=== PATIENT | male | born 1965 | race African-American/Black ===

== ENCOUNTER 2018-05-15 12:05 | Inpatient (IN) | payer SELFPAY ==
[2018-05-15 12:36] LABS: #Basophils 0.1 thou/uL (0.0-0.2); #Lymphocytes 2.7 thou/uL (1.20-3.40); #Monocytes 1.4 thou/uL (0.11-0.59); #Neutrophils 7.8 thou/uL (1.40-6.50); %Basophils 0.7 % (0.0-1.0); %Eosinophils 0.2 % (0.0-10.0); %Lymphocytes 22.8 % (21.0-51.0); %Monocytes 11.8 % (0.0-10.0); %Neutrophils 64.5 % (42.0-75.0); Hemoglobin 18.4 g/dL (14.0-18.0); Mean Corpuscular HGB CONC 32.9 g/dL (32.0-36.0); Mean Platelet Volume 6.9 fL (7.4-10.4); Platelet Count 291 thou/uL (130-400); RBC Distribution Width 11.7 % (11.5-14.5); Red Blood Cell (RBC) Count 5.41 mill/uL (4.70-6.10)
[2018-05-15 13:02] LABS: ALT (SGPT) 28 U/L (8-55); AST (SGOT) 29 U/L (5-34); Albumin 3.6 g/dL (3.5-5.0); Alkaline Phosphatase 109 U/L (40-150); Anion Gap 11 mmol/L (10-20); BUN (Urea Nitrogen) 7 mg/dL (8.4-25.7); Bilirubin, Total 0.7 mg/dL (0.2-1.2); Calc. Creatinine Clearance 0 mL/min (70-130); Calcium 9.8 mg/dL (7.8-10.44); Carbon Dioxide 31 mmol/L (22-29); Chloride 97 mmol/L (98-107); Estimated GFR-MDRD Greater than 90; Globulin 5.5 g/dL (2.4-3.5); Glucose 182 mg/dL (70-105); Potassium 3.6 mmol/L (3.5-5.1); Protein, Total 9.1 g/dL (6.0-8.3); Sodium 135 mmol/L (136-145)
[2018-05-15] MEDS ORDERED: ISOVUE-370 76%-LOCM 1 ML ONE (13:18)
[2018-05-15] MEDS ORDERED: Morphine 2 MG/ML SYRINGE ONE ×2 (14:11→18:42)
--- NOTE | 2018-05-15 15:23 | CT ---
CT OF ABDOMEN AND PELVIS PERFORMED WITH INTRAVENOUS CONTRAST ENHANCEMENT: History: Abdominal pain, more in the groin region. FINDINGS: The lung bases show some linear change which has the appearance more suggestive of scar. Small bleb i s seen in the right lower lobe. The liver, spleen, pancreas, and gallbladder regions appear unremarkable. Right and left adrenal glands and right and left kidneys are normal in size. There is no significant periaortic or mesenteric lymphadenopathy. CT OF PELVIS PERFORMED WITH INTRAVENOUS CONTRAST ENHANCEMENT: There is a lack of intraabdominal fat. However, an air filled normal caliber appendix is seen. No carter e fluid is demonstrated. There is some mildly enlarged external iliac nodes. This is just at the leve l of the anterior margin of the acetabulum with larger nodes of right external iliac node that measur es 1.7 cm in short axis dimension. The left external iliac node is only 8 mm in short axis dimension. There is also some moderate bilateral inguinal adenopathy, a larger node on the right side measures 1.5 cm. Bilateral hydroceles are incidentally noted. Prostate calcifications are present. Review of osseous structures show arthritic change of the spine and hips. No signs of any inguinal hernia demonstrated. IMPRESSION: 1. Bilateral hydroceles. 2. Mildly prominent bilateral inguinal nodes and external iliac chain nodes as discussed above. This is nonspecific, possibly some type of reactive node. There is no other significant adenopathy seen in the abdomen or pelvis. 3. No evidence of hernia. POS: [facility]
--- NOTE | 2018-05-15 16:10 | ULT ---
TESTICULAR ULTRASOUND: Date: 05/15/18 HISTORY: Right-sided testicular pain. COMPARISON: CT earlier today. FINDINGS: Real-time imaging of the scrotum was performed. The testicles are displaced to the left by a large co mplex collection which does not appear to represent a hydrocele but is lateral to the testicles. This has an appearance suggestive of an abscess, probably intrascrotal, but could be within the scrotal w all. It measures approximately 4.0 x 8.0 cm in size. There is no internal vascularity associated with this area. The right and left testes are within normal limits of size. There are small bilateral hydroceles. Epi didymal regions appear unremarkable. Right epididymis is somewhat difficult to visualize. DOPPLER EVALUATION WITH SPECTRAL ANALYSIS: Normal flow is show to the testes. IMPRESSION: Large right-sided complex fluid collection which appears to be a large right scrotal abscess. This was discussed with Dr. Reynolds. CODE CR. POS: [facility]
[2018-05-15] MEDS ORDERED: Piperacillin/Tazobactam 4.5 GM VIAL ONE (16:34)
[2018-05-15 16:52] LABS: Bilirubin Small (Negative); Blood, Urine Negative (Negative); Clarity CLEAR (Clear); Glucose, Urine (Dipstick) Negative (Negative); Leukocyte Negative (Negative); Nitrite Negative (Negative); Protein, Urine (Dipstick) 30 mg/dL (Neg-Trace)
[2018-05-15 16:54] LABS: Bacteria/HPF None Seen HPF (None Seen); Hyaline Casts/LPF 4-6 HYALINE CAST LPF (0-3 Hyaline); Pathc Cast-AUWi Flag 0.15 (0-2.49); RBC/HPF 0-3 HPF (0-3); Squamous Epithelial 0-3 HPF (0-3); WBC/HPF 0-3 HPF (0-3)
[2018-05-15 16:56] LABS: Specific Gravity, Urine Greater than 1.060 (1.002-1.036)
[2018-05-15] MEDS ORDERED: Lidocaine 1% w/Epinephrine 1:100K 20 ML VIAL ONE (17:07)
[2018-05-15] MEDS ORDERED: HYDROcodone/Acetaminophen 5/325 mg Tablet PO PRN (17:59)
[2018-05-15] MEDS ORDERED: Morphine 2 MG/ML SYRINGE IVP PRN (17:59)
[2018-05-15] MEDS ORDERED: Mag-Al 1200 mg/1200 mg/30 ML UDCUP PO PRN (17:59)
[2018-05-15] MEDS ORDERED: hydrALAZINE 20 MG/ML VIAL SLOW IVP PRN (17:59)
[2018-05-15] MEDS ORDERED: diphenhydrAMINE 25 MG CAP PO PRN (17:59)
[2018-05-15] MEDS ORDERED: Bisacodyl 10 MG SUPP PR PRN (17:59)
[2018-05-15] MEDS ORDERED: Morphine 4 MG/ML VIAL SLOW IVP PRN (17:59)
[2018-05-15] MEDS ORDERED: Ondansetron PF 4 MG/2 ML Vial IVP PRN (17:59)
[2018-05-15 18:32] LABS: Hemoglobin A1c 5.1 % (4.0-6.0)
[2018-05-15 20:44] VITALS: BMI 24.6
[2018-05-15] MEDS: Docusate 100 MG CAP PO SCH (20:45)
[2018-05-15 22:18] LABS: Syphilis Antibody Index 1.16 S/CO (<1.00 Non-Reactive)
[2018-05-15 22:50] LABS: HIV (1/2) Antibody/Antigen Non-Reactive (NonReactive); HIV 1/2 INDEX 0.11 S/CO (<1.00); Hep C IgG Ab Non-Reactive (NonReactive); Hep C Index 0.07 S/CO (0-0.79)
[2018-05-15] MEDS: Piperacillin/Tazobactam 3.375 GM in Sodium Chloride 0.9% 100 ML IVPB SCH (23:53)
[2018-05-16 01:01] LABS: Syphilis Antibody INDETERMINATE (Nonreactive); Syphilis Titer Non-Reactive (Negative)
[2018-05-16] MEDS: Vancomycin HCl 750 MG in Sodium Chloride 0.9% 250 ML 250 ML IVPB SCH ×3 (01:12→18:33)
--- NOTE | 2018-05-16 03:52 | HP ---
ADMITTING DIAGNOSIS: Right scrotal abscess. CHIEF COMPLAINT: "I have this pain real bad in my scrotum." HISTORY OF PRESENT ILLNESS: Mr. Peguero is a 53-year-old black male, who presented to the emergency room today with scrotal pain on the right side. He states that he had a knot in his right inguinal area approximately 2 days before Thanksgiving on the , last week. He was not having much pain at that time, but did notice some swelling in the groin region. After Thanksgiving, the area has started to become painful, but he did not have any fevers. There was no significant redness. The patient became constipated subsequently and ended up having a forceful bowel movement, at which point he felt the "mass" drop into his scrotum and his scrotum began to swell. At that point, he experienced a lot of pain in his groin region with extreme sensitivity especially when walking. The pain was made better by lying still and not moving much. The pain is approximately an 8/10 with activity. He describes this as a burning, sharp type pain in nature. When the pain did not subside and they continued, he thought he might have a hernia and he came into the emergency room, where he underwent a CT scan followed by a scrotal ultrasound. The CT demonstrated a hydrocele with some complex features and the scrotal ultrasound demonstrated a thick fluid collection more consistent with abscess. I was consulted for further assistance. The patient states that he has no history of voiding difficulties or urinary tract infection. He denies any previous urologic surgeries or trauma. He has never had hernia repairs before. He states he has not had any hematuria or kidney stones. He has no history of urinary tract infections. Of note, the patient has no insurance and does not see a doctor regularly, therefore his health problems are not well known and probably have never been diagnosed. His blood sugar was 186 upon arrival into the emergency room. PAST MEDICAL HISTORY: Unknown. No known medical problems at the current time. PAST SURGICAL HISTORY: Some type of hernia repair, possibly umbilical hernia repair. SOCIAL HISTORY: The patient denies smoking. Drinks socially only and denies any drug use. FAMILY HISTORY: Noncontributory. CURRENT HOME MEDICATIONS: None. ALLERGIES: NO KNOWN DRUG ALLERGIES. REVIEW OF SYSTEMS: A 12-point review of systems is reviewed and otherwise unremarkable. review of systems is in the HPI and negative other than the scrotal pain. Denies any fever or chills, nausea, vomiting, chest pain, or shortness of breath. Remainder of 12-point review of systems is reviewed and otherwise negative. PHYSICAL EXAMINATION: GENERAL: No apparent distress. Communicative and alert, well-nourished, well-developed, and appears his stated age. HEENT: Normocephalic, atraumatic. Sclerae nonicteric. Pupils symmetric and round. Moist mucous membranes. Missing some teeth with slightly below average dentition. Trachea midline. CARDIOVASCULAR: Regular rate and rhythm. Normal S1 and S2. Symmetric pulses. CHEST: Breath sounds bilaterally. No wheezes. No increased work of breathing. Symmetric expansion of the lungs. ABDOMEN: Soft, nontender, and nondistended. Positive bowel sounds. No suprapubic tenderness. No CVA tenderness. No organomegaly. No rebound, guarding or peritoneal signs. GENITOURINARY: The patient is uncircumcised. There are no lesions upon retraction of the foreskin. Meatus is normal. The left scrotum appears normal with normal testicle. The right scrotum is enlarged with erythema, shininess of the scrotal wall with significant tenderness on palpation. There are palpable lymph nodes along the right inguinal chain with significant tenderness at the external ring. There are no obvious hernias present. RECTAL: Exam is deferred at this time. EXTREMITIES: No clubbing, cyanosis, or edema. MUSCULOSKELETAL: No joint or foot deformities or joint erythema noted. Full range of motion of all extremities. NEUROLOGIC: Cranial nerves 2 through 12 grossly intact. No focal or sensory motor deficits identified. SKIN: Warm, dry. Good turgor. No rashes or lesions. PSYCHIATRIC: Alert and oriented x3. Appropriate mood and affect. LABORATORY DATA: On laboratory evaluation, the full set of labs in the [facility] system, which I have reviewed. Of note, the patient's white count is 12 with the creatinine of 1, sodium of 135, and a blood sugar of 182. CT from May 15 demonstrates bilateral hydroceles with mildly prominent bilateral inguinal lymph nodes and external iliac chain nodes without any evidence of hernia. Scrotal ultrasound done today, demonstrates a large right-sided complex fluid collection, which appears to be a large right scrotal abscess. PROCEDURE: I discussed with the patient, the very high likelihood of his scrotal abscess. I discussed incision and drainage with him along with risks and benefits, he has agreed to proceed forward, consent was obtained. His scrotum was prepped and draped in the usual sterile fashion. Analgesia was obtained with 0.25% Marcaine with epinephrine, 10 mL was used along the inferior aspect of the anterior scrotum. Once numb, an incision was made with an 11 blade, approximately 1 cm, which immediately released a brownish purulent and sanguineous type fluid with the foul odor. A swab was used to culture this fluid and send off for Gram-stain and culture. Confirming that this was indeed an abscess, the incision was opened to approximately 4 cm to allow for proper drainage. All of the fluid was squeezed out and the patient reported immediate relief in the scrotum. The scrotal cavity was then washed out thoroughly with hydrogen peroxide and then irrigated clean with normal saline. Iodoform packing was then used to pack up the scrotum. A gauze was applied over the incision line and then mesh panties applied. The patient tolerated the procedure well. Estimated blood loss is approximately 30 mL to 40 mL with 0.25 inch Sana packing. No specimens other than the culture taken. ASSESSMENT AND PLAN: A 53-year-old black male with the right scrotal abscess, status post incision and drainage with likely diabetes, although this has not been confirmed. I have ordered a hemoglobin A1c and I have recommended the hospitalist consult to evaluate to see if the patient has any other known medical problems at the current time. I will go ahead and admit him for IV antibiotics as he does have a lymphadenopathy and I would like to treat him systemically, especially if he is diabetic. Once we get the cultures back, we can send him out on oral antibiotics for approximately 10 days. He will need to have his iodoform gauze change daily. We will see if there is any ability for home health to come; although he has no insurance. If he cannot have a home health, he will need to learn and do this by himself. I will continue to follow up with him on an outpatient basis once he is discharged to ensure proper healing and I have strongly recommended that he considered seeing [facility] or any other [facility] for his health care needs and any new diagnosis that he obtains while in the hospital. Job ID: [id number]
[2018-05-16] MEDS: Piperacillin/Tazobactam 3.375 GM in Sodium Chloride 0.9% 100 ML IVPB SCH ×3 (05:17→17:20)
[2018-05-16 06:17] LABS: Anion Gap 9 mmol/L (10-20); BUN (Urea Nitrogen) 7 mg/dL (8.4-25.7); Calc. Creatinine Clearance 106 mL/min (70-130); Calcium 8.9 mg/dL (7.8-10.44); Carbon Dioxide 29 mmol/L (22-29); Chloride 104 mmol/L (98-107); Estimated GFR-MDRD Greater than 90; Glucose 97 mg/dL (70-105); Potassium 3.8 mmol/L (3.5-5.1); Sodium 138 mmol/L (136-145)
--- NOTE | 2018-05-16 06:36 | PDOC.EVN ---
Event Note - Event Note Event Note: Consultation note dictation pending. Briefly, 53 yo M with h/o HTN admitted for scrotal abscess s/p I&D and IV antibiotics. BCx, UCx and fluid studies pending. Monitoring BP and will start medications as indicated. a1c WNL. Due to h/o incarceration and tattoos, HIV, RPR and Hep C ordered. Please see consultation note for full H&P.
[2018-05-16 06:51] LABS: Band 3 % (5-11); Hemoglobin 16.7 g/dL (14.0-18.0); Lymphocytes 40 % (21-51); MDiff Complete? YES; Macrocytosis SLIGHT = 6-15 cells (100X) (0-5/hpf); Mean Corpuscular HGB CONC 33.2 g/dL (32.0-36.0); Mean Corpuscular Hemoglobin 34.5 pg (27.0-31.0); Mean Platelet Volume 7.4 fL (7.4-10.4); Monocytes 1 % (0-10); Neutrophil 56 % (42-75); PLT Morphology Comment Appears Adequate; Platelet Count 261 thou/uL (130-400); RBC Distribution Width 11.6 % (11.5-14.5); Red Blood Cell (RBC) Count 4.85 mill/uL (4.70-6.10); White Blood Cell (WBC) Count 8.5 thou/uL (4.8-10.8)
--- NOTE | 2018-05-16 08:44 | CON ---
REASON FOR CONSULTATION: Comorbidity management. HISTORY OF PRESENT ILLNESS: Mr. Peguero is a 53-year-old gentleman, who presented to the ER today after approximately 1 week of worsening fullness in his right groin. He reports that approximately 1 to 2 days prior to Thanksgiving he noticed that he was becoming progressively more constipated and was having difficulty having bowel movements. He notes that approximately 2 days after Thanksgiving he was trying to have a bowel movement and felt that something had progressively lowered into his right scrotum. He thought it was a hernia from straining and tried to rest at home for a few days, but the pain became progressively more uncomfortable and today family encouraged him to proceed to the ER for evaluation. While there, he was found to be hypertensive, although in significant pain, and a CT was performed, which showed a scrotal mass suspicious for an infected hydrocele versus scrotal abscess as well as prominent inguinal nodes. There was no evidence of hernia at that time. Dr. Burnett was consulted in ER and performed a bedside I and D revealing significant purulent drainage, which was sent for further evaluation. At this time, the patient reports he is feeling well, and his pain is much improved. He does endorse a remote history of hypertension, which was diagnosed in the s and that he was on medication for approximately 1 year. He was then told that he could come off the medication. He denies any other significant medical history. He reports that he has otherwise been feeling well, and denies any other symptoms. PAST MEDICAL HISTORY: Hypertension. PAST SURGICAL HISTORY: None. FAMILY HISTORY: Diabetes in his mother and Alzheimer's disease in his grandmother. SOCIAL HISTORY: Denies tobacco use. Endorses alcohol, he is drinking 1 to 2 beers a day. Denies any history of DTs or withdrawal, and has gone a few days without drinking within the last month. Endorses occasional marijuana use. Denies any other illicit drug use or IV drug use. History of incarceration. MEDICATIONS: None. ALLERGIES: NO KNOWN DRUG ALLERGIES. REVIEW OF SYSTEMS: GENERAL: Denies fever or chills. HEAD: Denies headache or head trauma. EYES: Denies vision changes or eye pain. ENT: Denies ear pain or rhinorrhea. CV: Denies chest pain or palpitations. RESPIRATORY: Denies cough or sputum production. GASTROINTESTINAL: Denies nausea or vomiting. Endorses constipation. GENITOURINARY: Denies dysuria or hematuria. Endorses scrotal swelling. ENDOCRINE: Denies polyuria or polydipsia. MUSCULOSKELETAL: Denies joint pain or joint swelling. NEUROLOGIC: Denies focal weakness or seizures. PHYSICAL EXAMINATION: VITAL SIGNS: Blood pressure 158/100, respirations 18, pulse 55, temperature 98.2, and SpO2 98% on room air. GENERAL: Alert and oriented x3. HEENT: Atraumatic and normocephalic, slightly dry mucous membranes, muddy sclerae, trachea midline. CARDIOVASCULAR: Regular rate and rhythm. No murmur noted. RESPIRATORY: Clear to auscultation bilaterally. ABDOMEN: Soft, nontender, and nondistended with normoactive bowel sounds. GENITOURINARY: Right scrotum erythematous and tender to palpation with incision draining serosanguinous fluid. BACK: No CVA tenderness. EXTREMITIES: No edema. Pulses 2+ SKIN: Tattoos on chest and upper extremities. LABORATORY DATA: Labs were reviewed, which revealed mild leukocytosis and elevated hemoglobin. CT of the abdomen and pelvis showed bilateral hydroceles, no evidence of inguinal hernia, and mildly prominent bilateral inguinal nodes, and external iliac chain nodes. Testicular ultrasound showed a large right-sided complex fluid collection, appearing to be a large right scrotal abscess. ASSESSMENT AND PLAN: A 53-year-old male with past medical history of hypertension, here for a right scrotal abscess with unknown comorbidities. 1. Scrotal abscess: Management per Dr. Burnett. Blood and urine cultures are pending as well as additional laboratory studies of fluid drained. 2. Hypertension: We will continue to monitor blood pressure and discuss with the patient possibility of starting p.o. medications now that pain is acutely controlled. 3. Hyperglycemia. Nonfasting glucose of 180. We will check A1c and monitor fasting glucose and discuss initiation of medication as indicated. 4. Tattoos: The patient reports tattoos were performed in skilled nursing. He does not know if he has been tested for hepatitis or human immunodeficiency virus. We will plan to add this with unusual infection and possible immunocompromised state. 5. Code status: Full. 6. Prophylaxis: Lovenox 40 mg subcutaneous qDay Jennifer Katz MD, PGY-3 Assessment and plan discussed with Dr. Sage. Job ID: [id number] [facility]
[2018-05-16] MEDS: HYDROcodone/Acetaminophen 5/325 mg Tablet PO PRN ×2 (09:15→22:15)
[2018-05-16] MEDS: Enoxaparin Sodium 40 MG/0.4 ML SYRINGE SC SCH (09:15)
[2018-05-16] MEDS: Docusate 100 MG CAP PO SCH ×2 (09:20→20:40)
--- NOTE | 2018-05-16 12:00 | PDOC.FM ---
- Subjective Subjective: Patient doing well this AM. No significant overnight events. He states that his pain is much improved after procedure. His pain went from 10/10 to 2/10. Patient states he does have a history of HTN back in the 's. He was on medications for a few months and then taken off as his BP was very well controlled. Patient denies abdominal pain, fever, chills, chest pain or shortness of breath today. - Objective MAR Reviewed: Yes Vital Signs & Weight: Vital Signs (12 hours) Temp Pulse Resp BP Pulse Ox 05/16/18 08:00 98.5 F 61 18 116/113 H 97 05/16/18 03:57 98.3 F 61 18 140/87 97 Weight Weight 75.75 kg Result Diagrams: 05/16/18 05:14 05/16/18 05:14 EKG Reviewed by me: No Radiology Reviewed by me: Yes <Kenisha Orr - Last Filed: 05/16/18 12:10> - Objective Vital Signs & Weight: Vital Signs (12 hours) Temp Pulse Resp BP Pulse Ox 05/16/18 08:00 98.5 F 61 18 116/113 H 97 05/16/18 03:57 98.3 F 61 18 140/87 97 Weight Weight 75.75 kg Result Diagrams: 05/16/18 05:14 05/16/18 05:14 <Marco A Diaz - Last Filed: 05/16/18 15:57> Phys Exam - Physical Examination Constitutional: NAD HEENT: moist MMs Neck: supple Respiratory: no wheezing, clear to auscultation bilateral Cardiovascular: RRR, no significant murmur Gastrointestinal: soft, non-tender, no distention, positive bowel sounds Musculoskeletal: no edema, pulses present Neurological: non-focal Psychiatric: A&O x 3 Skin: cap refill <2 seconds <Kenisha Orr - Last Filed: 05/16/18 12:10> Dx/Plan (1) HTN (hypertension) Code(s): I10 - ESSENTIAL (PRIMARY) HYPERTENSION Status: Acute (2) Tattoos Code(s): L81.8 - OTHER SPECIFIED DISORDERS OF PIGMENTATION Status: Acute (3) History of incarceration Code(s): Z91.89 - OTH PERSONAL RISK FACTORS, NOT ELSEWHERE CLASSIFIED Status: Chronic (4) Scrotal abscess Code(s): N49.2 - INFLAMMATORY DISORDERS OF SCROTUM Status: Acute - Plan Plan: 53 yo M with h/o HTN admitted for scrotal abscess s/p I&D and IV antibiotics. Our team was consulted for medical management. Large complex scrotal abscess - S/p I&D - Continue IV abx per urology - BCx, UCx and fluid studies pending - Improved after I&D HTN, suspected - Distant history of HTN on medications for a few months in the past - BP has been intermittently elevated during visit. May be secondary to pain. Will hold off on starting medication at this time, but will continue to monitor. Explained that if BP remained elevated, we would consider starting small dose of medication. - Information for TAMP will be provided to clinic so that he can follow up and have BP monitored Tattoos - HIV and Hep panel negative - RPR intermediate, FTA-Abs pending Dispo: Will continue to follow patient for medical management. Appreciate consultation. <Kenisha Orr - Last Filed: 05/16/18 12:10> Attending Addendum - Attending Addendum Date/Time: 05/16/18 1132 I personally evaluated the patient and discussed the management with Dr. Orr. I agree with the History, Examination, Assessment and Plan documented above with any addition or exceptions noted below. <Marco A Diaz - Last Filed: 05/16/18 15:57>
[2018-05-16 16:30] LABS: Vancomycin, Trough 10.5 ug/mL
[2018-05-16] MEDS: Vancomycin HCl 1 GM in Premix Bag 1 BAG IVPB SCH (18:02)
[2018-05-17] MEDS: Piperacillin/Tazobactam 3.375 GM in Sodium Chloride 0.9% 100 ML IVPB SCH ×3 (00:20→11:06)
[2018-05-17] MEDS: Vancomycin HCl 1 GM in Premix Bag 1 BAG IVPB SCH ×2 (01:21→08:29)
--- NOTE | 2018-05-17 06:50 | PDOC.FM ---
- Subjective Subjective: Resting comfortably this morning. States that pain is well controlled. No new symptoms over night. No new complaints - Objective MAR Reviewed: Yes Vital Signs & Weight: Vital Signs (12 hours) Temp Pulse Resp BP BP BP Pulse Ox 05/17/18 04:39 98.5 F 64 16 134/77 96 05/17/18 00:00 98.3 F 56 L 16 157/95 H 157/95 H 95 05/16/18 22:19 156/87 H 05/16/18 21:08 59 L 187/119 H 05/16/18 19:00 98.9 F 59 L 20 172/103 H 97 Weight Weight 75.75 kg I&O: 05/15/18 05/16/18 05/17/18 06:59 06:59 06:59 Intake Total 2380 Balance 2380 Result Diagrams: 05/16/18 05:14 05/16/18 05:14 <Joel Heller - Last Filed: 05/17/18 06:48> - Objective Vital Signs & Weight: Vital Signs (12 hours) Temp Pulse Resp BP Pulse Ox 05/17/18 12:08 98.8 F 70 16 144/98 H 97 05/17/18 08:25 95 05/17/18 08:17 98.4 F 57 L 16 149/88 H 95 05/17/18 04:39 98.5 F 64 16 134/77 96 Weight Weight 75.75 kg I&O: 05/16/18 05/17/18 05/18/18 06:59 06:59 06:59 Intake Total 2380 Balance 2380 Result Diagrams: 05/16/18 05:14 05/16/18 05:14 <Amisha Best - Last Filed: 05/17/18 13:53> Phys Exam - Physical Examination Constitutional: NAD HEENT: moist MMs Neck: no JVD Respiratory: clear to auscultation bilateral Cardiovascular: RRR Gastrointestinal: soft, non-tender, no distention Neurological: moves all 4 limbs Psychiatric: A&O x 3 Skin: no rash <Joel Heller - Last Filed: 05/17/18 06:48> Dx/Plan (1) HTN (hypertension) Code(s): I10 - ESSENTIAL (PRIMARY) HYPERTENSION Status: Chronic (2) Scrotal abscess Code(s): N49.2 - INFLAMMATORY DISORDERS OF SCROTUM Status: Acute (3) History of incarceration Code(s): Z91.89 - OTH PERSONAL RISK FACTORS, NOT ELSEWHERE CLASSIFIED Status: Chronic - Plan Plan: 1. Large complex scrotal abscess - S/p I&D - Continue IV abx per urology, would move to po when cultures result - BCx, UCx and fluid studies pending, prelim negative - Improved after I&D 2. HTN, suspected - Will start on HCTZ today dt continued elevated BP - Follow up with [facility] outpatient Hx of incarceration - initial syphilis IgG screen was indeterminate, T Pallidum FTA pending. RPR negative Dispo: Will continue to follow patient for medical management. Appreciate consultation. <Joel Heller - Last Filed: 05/17/18 06:48> Attending Addendum - Attending Addendum Date/Time: 05/17/18 1152 I personally evaluated the patient and discussed the management with Dr. Heller. I agree with the History, Examination, Assessment and Plan documented above with any addition or exceptions noted below. The patient has been cleared for discharge by urology. <Amisha Best - Last Filed: 05/17/18 13:53>
[2018-05-17] MEDS: Docusate 100 MG CAP PO SCH (08:29)
[2018-05-17] MEDS: Enoxaparin Sodium 40 MG/0.4 ML SYRINGE SC SCH (08:29)
[2018-05-17] MEDS ORDERED: Hydrochlorothiazide 25 MG TAB PO SCH (09:00)
[2018-05-17 12:08] VITALS: BP 144/98; TEMP 98.8
--- NOTE | 2018-05-17 19:01 | EKG ---
Test Reason : PREOP/ER Blood Pressure : / mmHG Vent. Rate : 057 BPM Atrial Rate : 057 BPM P-R Int : 176 ms QRS Dur : 086 ms QT Int : 474 ms P-R-T Axes : 047 001 -10 degrees QTc Int : 461 ms Sinus bradycardia Minimal voltage criteria for LVH, may be normal variant Nonspecific T wave abnormality Prolonged QT Abnormal ECG Confirmed by VALERIO BARKER, IFEOMA Keyes ([id number]), communications editor SHELBY ALDANA ([id number]) on 05/17/2018 7:00:51 PM Referred By: Confirmed By:IFEOMA LUO MD
--- NOTE | 2018-05-19 07:49 | DIS ---
DATE OF ADMISSION: 05/15/2018 DATE OF DISCHARGE: 05/17/2018 DISCHARGE SUMMARY AND PHYSICAL EXAMINATION PHYSICAL EXAMINATION: GENERAL: Mr. Peguero on today's exam is doing well. VITAL SIGNS: He is afebrile. Vital signs are stable. ABDOMEN: Soft, nontender, and nondistended. : Right scrotal I and D site visualized, preexisting iodoform gauze was removed and demonstrates evidence of component of purulent discharge. No active fluctuance, worsening erythema is noted. Packing was removed, the wound probed. It does track approximately 4 cm inferiorly, 3 to 4 cm cephalad. No active purulent drainage, no further abscess activity warranting further debridement is noted. A new iodoform packing was replaced, which the patient tolerated the procedure without significant issues. LABORATORY DATA: Pertinent labs today; creatinine 0.84. White count is 8.5, hemoglobin 16, and platelets 261. His serology demonstrates indeterminate syphilis; further antibody testing for syphilis is pending. Hepatitis C and HIV are negative. IMPRESSION AND PLAN: Mr. Peguero is a 53-year-old male, previous inmate, presented with right scrotal abscess, status post incision and drainage by Dr. Burnett. The patient feels comfortable, performing his own dressing changes which we advised once a day, signed up by Dr. Burnett. His wound dressing was changed. I informed the patient that he may shower, change dressing daily. I did inform the nurse to provide extra iodoform gauze and 4x4 for dressing changes at home. His blood culture is negative. Urine culture negative. Wound culture demonstrates no microorganism. Previous gram stain demonstrated gram positive cocci. Therefore, I would discharge with Bactrim DS for 21 days. HOSPITAL COURSE: As above, in which he underwent I and D for presenting abscess. He is tolerating the procedure well and will be discharged home. ACTIVITY: As tolerated. DISCHARGE INSTRUCTIONS: The patient may shower. Dressing changes daily. Sending appointment with Dr. Burnett on 05/20. His narcotics have already been sent to the pharmacy, [facility] as well. I did add Bactrim DS one p.o. b.i.d. for 21 days. DISPOSITION: Home. CONDITION: Stable. Job ID: [id number]
--- NOTE | 2018-05-20 10:48 | PRG ---
DATE OF SERVICE: 05/16/2018 SUBJECTIVE: The patient states he is doing well. His pain is minimal, it only hurts when he moves around a lot or during dressing changes. He did scream quite a bit during his dressing change, but he states that he can do this at home, probably with some assistance. He did not have any fevers and he states he is feeling better overall. OBJECTIVE: VITAL SIGNS: Temperature 98.5, pulse 61, respirations 18, blood pressure 116/113, saturation 97% on room air. GENERAL: No apparent distress, communicating, alert. CARDIOVASCULAR: Regular rate and rhythm. CHEST: No increased work of breathing. ABDOMEN: Soft, nontender, nondistended. Positive bowel sounds. : Scrotum has significantly decreased in size and erythema. There is less swelling. The dressing is somewhat saturated and the packing is still in place. There is a mild amount of purulence around. Overall, there is significant improvement. No evidence of Mickey gangrene. EXTREMITIES: No clubbing, cyanosis, or edema. LABORATORY DATA: On laboratory evaluation, the full set of labs in the [facility], which I have reviewed. Note, the patient's white count has decreased to 8.5 with hemoglobin of 16.7. Creatinine is currently 0.84. Bacterial culture is growing Staphylococcus aureus. Awaiting final sensitivities. ASSESSMENT AND PLAN: A 53-year-old black male with a scrotal wall abscess, status post incision and drainage, currently appearing to do quite well. He is improving significantly. I will continue dressing changes today until his culture is finalized. At that point, he can probably be discharged home with continued wound care with dressing changes once a day with iodoform or half-inch gauze tape. I will have to see him back as followup to make sure that his incision is healing appropriately. We will see if the family medicine physicians have anything to add as far as his medical history as he does not have a general primary care doctor. Dr. Plaza will be seeing the patient over the weekend in my stead and he can probably be discharged once he has his final culture set up and everything is stable and he does know how to take care of his wound. Job ID: [id number]
== END 2018-05-17 12:44 | disposition home or self-care (01) | DRG 718 ==
LOC: ERS 12:05 → SURG A 19:54
PROVIDERS: ADMIT Urology; ATTEND Urology
PROC: 0V950ZZ Drainage of Scrotum, Open Approach (ICD-10-PCS; principal; 2018-05-15)
DX: N49.2 Inflammatory disorders of scrotum (principal); R73.9 Hyperglycemia, unspecified; B95.61 Methicillin susceptible Staphylococcus aureus infection as the cause of diseases classified elsewhere
CPT/HCPCS: 36415; 74177; 76870; 80048; 80053; 80202; 81003; 81015; 83036; 85025; 86593; 86780; 86803; 87040; 87070; 87077; 87086; 87186; 87205; 87389; 93005; 93976; 96365; 96366; 96367; 96375; 96376; J0360; J1650; J2001; J2270; J2543; J3370; J7050

== ENCOUNTER 2018-07-25 15:33 | Inpatient (IN) | payer SELFPAY ==
[~2018-07-25 15:33] MED LIST: ISOVUE-370 76%-LOCM 1 ML ONE
[2018-07-25 16:14] LABS: #Eosinphils 0.1 thou/uL (0.0-0.7); #Lymphocytes 3.9 thou/uL (1.20-3.40); #Monocytes 1.4 thou/uL (0.11-0.59); #Neutrophils 11.2 thou/uL (1.40-6.50); %Basophils 0.2 % (0.0-1.0); %Eosinophils 0.3 % (0.0-10.0); %Lymphocytes 23.4 % (21.0-51.0); %Monocytes 8.5 % (0.0-10.0); %Neutrophils 67.6 % (42.0-75.0); Hemoglobin 18.6 g/dL (14.0-18.0); Mean Corpuscular HGB CONC 31.3 g/dL (32.0-36.0); Mean Corpuscular Hemoglobin 33.4 pg (27.0-31.0); Mean Platelet Volume 8.3 fL (7.4-10.4); Platelet Count 193 thou/uL (130-400); RBC Distribution Width 14.2 % (11.5-14.5); Red Blood Cell (RBC) Count 5.55 mill/uL (4.70-6.10); White Blood Cell (WBC) Count 16.5 thou/uL (4.8-10.8)
[2018-07-25 16:20] LABS: Actual Bicarbonate (HCO3a) 19.4 mEq/L (22-28); Analyzer IN Cardio ER; Base Excess (BEa) -5.7 mEq/L (-2.0 to +3.0); CO2 Tension 37.2 mmHg (35.0-45.0); Calcium, Ionized 1.17 mmol/L (1.12-1.30); Carboxyhemoglobin (COHb) 1.2 gm% (0.0-3.0); Hemoglobin (Hb) 18.2 g/dL (14.0-18.0); O2 Tension (PaO2) 87.6 mmHg (80.0-100.0); Potassium - ABG Lab 3.33 mmol/L (3.70-5.30); pH, Arterial 7.33 (7.35-7.45)
[2018-07-25 16:20] LABS: INR-International Normal Ratio 0.9; PTT 25.6 SEC (22.9-36.1); Prothrombin Time 12.2 SEC (12.0-14.7)
[2018-07-25 16:21] LABS: Puncture Site RRA
[2018-07-25 16:26] LABS: MDiff Complete? YES; Macrocytosis SLIGHT = 6-15 cells (100X) (0-5/hpf); Platelet Morphology Comment Appears Adequate
[2018-07-25 16:52] LABS: Bilirubin Negative (Negative); Blood, Urine Moderate (Negative); Clarity CLEAR (Clear); Glucose, Urine (Dipstick) >=1000 mg/dL (Negative); Leukocyte Negative (Negative); Nitrite Negative (Negative); Protein, Urine (Dipstick) 100 mg/dL (Neg-Trace); Specific Gravity, Urine 1.021 (1.002-1.036); Urobilinogen 0.2 mg/dL (0.2-1.0); pH, Urine 5.5 (5.0-9.0)
[2018-07-25 16:55] LABS: Bacteria/HPF None Seen HPF (None Seen); Hyaline Casts/LPF 0-3 HYALINE CAST LPF (0-3 Hyaline); Pathc Cast-AUWi Flag 0.29 (0-2.49); RBC/HPF 0-3 HPF (0-3); Squamous Epithelial 0-3 HPF (0-3); WBC/HPF 0-3 HPF (0-3)
[2018-07-25] MEDS ORDERED: Fentanyl 100 MCG/2 ML VIAL ONE (17:04)
[2018-07-25] MEDS ORDERED: Midazolam HCl 5 mg/ml Vial ONE (17:08)
[2018-07-25] MEDS ORDERED: Lorazepam 2 MG/ML VIAL ONE (17:09)
--- NOTE | 2018-07-25 17:19 | CT ---
CT ARTERIOGRAM NECK WITH IV CONTRAST AND 3D MIP IMAGING CT ARTERIOGRAM HEAD WITH IV CONTRAST AND 3D MIP IMAGING CT BRAIN WITH IV CONTRAST 07/25/18 HISTORY: Head injury. Intracranial hemorrhage. FINDINGS: Large right cerebral intraparenchymal acute hematoma with larger amount of surrounding vasogenic maryellen a and leftward shift of the septum pellucidum with complete effacement of the right lateral ventricle is similar to the recent noncontrast CT head exam. There is normal branching of the great vessels at the aortic arch with good flow into each carotid an d vertebral system. No significant stenoses at the carotid bifurcations. Severe widespread cerebral edema effaces the basilar cisterns. Good flow is seen into each anterior a nd middle cerebral artery and to the left posterior cerebral artery. The right posterior cerebral art libby is not well visualized. There is no enhancing lesions or aneurysms are apparent. Nasogastric tube and endotracheal catheter partially visualized. Gas is present within the left supra temporal subcutaneous and muscular tissues. Small amount of fluid within the posterior nasopharynx. IMPRESSION: Large right parenchymal hematoma and diffuse cerebral edema are again demonstrated with resulting com pression and possible occlusion of the right posterior cerebral artery due to the herniation. The ant erior, middle, and left posterior cerebral arterial distributions are preserved. Findings were called to Dr. Kendrick in the Emergency Department at 1704 hours. Code CR POS: [facility]
[2018-07-25 17:27] LABS: ALT (SGPT) 11 U/L (8-55); AST (SGOT) 28 U/L (5-34); Alkaline Phosphatase 102 U/L (40-150); Anion Gap 19 mmol/L (10-20); BUN (Urea Nitrogen) 9 mg/dL (8.4-25.7); Bilirubin, Total 1.5 mg/dL (0.2-1.2); CK (CPK) 292 U/L (30-200); Calc. Creatinine Clearance 0 mL/min (70-130); Carbon Dioxide 20 mmol/L (22-29); Chloride 103 mmol/L (98-107); Estimated GFR-MDRD Greater than 90; Globulin 3.8 g/dL (2.4-3.5); Glucose 219 mg/dL (70-105); Potassium 3.5 mmol/L (3.5-5.1); Protein, Total 7.8 g/dL (6.0-8.3); Sodium 138 mmol/L (136-145)
[2018-07-25 17:46] LABS: CKMB 2.4 ng/mL (0-6.6)
[2018-07-25] MEDS ORDERED: Acetaminophen 325 MG TAB PO PRN (18:20)
[2018-07-25] MEDS ORDERED: Bisacodyl 10 MG SUPP PR PRN (18:20)
[2018-07-25] MEDS ORDERED: Norepinephrine 8 MG/0.9% NS 250 ML IVPB PRN (18:20)
[2018-07-25] MEDS ORDERED: Ondansetron PF 4 MG/2 ML Vial IVP PRN (18:20)
[2018-07-25] MEDS ORDERED: Mag-Al 1200 mg/1200 mg/30 ML UDCUP PO PRN (18:20)
[2018-07-25] MEDS ORDERED: Labetalol HCl 100 MG/20 ML VIAL SLOW IVP PRN (18:20)
[2018-07-25] MEDS ORDERED: Milk Of Magnesia 30 ML UDCUP PO PRN (18:20)
[2018-07-25] MEDS ORDERED: fentaNYL Citrate/PF 2,000 MCG in Sodium Chloride 0.9% 60 ML IV SCH (18:56)
[2018-07-25] MEDS ORDERED: Lorazepam 2 MG/ML VIAL SLOW IVP PRN (18:56)
[2018-07-25] MEDS ORDERED: Propofol BOLUS 1,000 MG/100 ML VIAL IV PRN (18:56)
[2018-07-25] MEDS ORDERED: Fentanyl BOLUS 250 ML IVPB PRN (18:56)
[2018-07-25] MEDS ORDERED: Morphine 2 MG/ML SYRINGE SLOW IVP PRN (18:56)
[2018-07-25] MEDS ORDERED: DISCONTINUE PREVIOUS NARCOTIC PAIN MEDICATIONS AND BENZODIAZEPINES FS SCH (18:56)
[2018-07-25] MEDS: niCARdipine HCl 25 MG in Sodium Chloride 0.9% 250 ML 240 ML IVPB PRN ×3 (19:07→23:50)
--- NOTE | 2018-07-25 19:15 | PRG ---
DATE OF SERVICE: 07/25/2018 SUBJECTIVE: I personally examined the patient, reviewed imaging, spoke with the family, and agreed with documentation of Vilma Alex PA-C dated 2018. Briefly, Beka Peguero is a 53-year-old gentleman who came to the ED after acute onset thunderclap headache. This was worst headache of his life. About the time he was brought to the emergency department, he was losing consciousness. He was sedated and intubated and taken to CT examination of the brain, which revealed a parenchymal clot in the right temporal lobe and a massive amount of shift with temporal lobe herniation and compression of the brainstem and posterior brainstem hemorrhage. Blood pressure at the time of first evaluation was well over 200. Since then, he has been placed on a Cardene drip and given propofol. He was taken for CT angiography and he is back from that test now. I saw Mr. Peguero in our trauma bay with the propofol off and he breathes over the ventilator. His GCS is 4T. He has extensor posturing on both sides. The right pupil is 8 mm large and does react. The left pupil is 6 to 7 mm large and it does not react. There is a corneal reflex. There is no doll's eye reflex. There is a gag. He is breathing. I reviewed CT angiography. There is occlusion of the right posterior cerebrum because of the herniation. There is no obvious aneurysm. There is no obvious AVM. The parenchymal portion of the hematoma is larger than it was on the first exam and there is already loss of some simeon-white differentiation. I had a long discussion with the family including sisters, close family friends, nieces, and nephews. I explained to them that Beka's massive intracerebral hemorrhage has already resulted in herniation, Duret hemorrhages in the brainstem, brainstem compression, and loss of consciousness, from which he will not recover. I do not believe that surgical intervention has any chance of resulting in a meaningful recovery. We will admit Mr. Peguero to the critical care unit, keep his blood pressure in a wide, but acceptable range. When he loses brainstem function, we will declare at that point. I will allow the organ procurement specialists for transplant to speak with the family thereafter. Anticipate significant progression overnight. (time: at least 45 min in [id number] discussion with family, another 30 min in film review, chart review, examination) Job ID: [id number] MTDD
[2018-07-25] MEDS ORDERED: levETIRAcetam 500 MG TAB PO SCH (21:00)
[2018-07-25] MEDS: Propofol 1,000 MG/100 ML VIAL IV PRN (21:10)
[2018-07-25] MEDS: Famotidine/PF 20 mg/2ml Vial SLOW IVP SCH (21:10)
[2018-07-25] MEDS: Sodium Chloride 0.9% 1,000 ML IV SCH (21:11)
--- NOTE | 2018-07-25 22:46 | CT ---
CT BRAIN WITHOUT CONTRAST 07/25/18 HISTORY: Subarachnoid hemorrhage. COMPARISON: Ct angiogram of head same day. FINDINGS: The amount of intraventricular hemorrhage has increased especially within the atria of the left later al ventricle. There is extensive right parietal intraparenchymal hematoma which is similar in size to the comparison examination which extends into the fourth ventricle. Midline shift measures approxima tely 18 mm. There is extensive subarachnoid hemorrhage on the basilar cisterns. There is right to lef t subfalcine herniation as well as right sided uncal herniation. Uncal herniation appears to be progr essed. There appears to be a developing hypodensity along the right cerebellum concerning for developing inf arction. IMPRESSION: 1. Increasing intraventricular hemorrhage, increasing subarachnoid hemorrhage, and worsening unc al herniation. 2. Developing hypodensity of the right cerebellum concerning for underlying developing infarctio n. POS: [facility]
--- NOTE | 2018-07-26 00:53 | HP ---
HISTORY OF PRESENT ILLNESS: Mr. Peguero is a 53-year-old male who was brought to the emergency department today due to altered mental status. Per EMS, the patient had a sudden onset of headache and then deteriorated and became unresponsive. EMS transported to our hospital. EMS reports the patient has a laceration to his right mormonism. He was not talking on the scene. The patient was at work when this happened. It is unknown if he lost consciousness before or after the fall. Per EMS, the patient's GCS was 9 on site. The patient was brought to the emergency department and was having decorticate posturing on arrival, right pupil was 9 mm in size and fixed, the left pupil is 4 mm and reactive. Neurosurgery was brought in to assess due to a large intraparenchymal hemorrhage with mass effect and midline shift. When I visit the patient's emergency department room, he is on a ventilator. He is not responsive to verbal or painful stimuli. His pupils are round and fixed. He has mild corneal reflex, no gag. REVIEW OF SYSTEMS: Unable to obtain review of systems. PAST MEDICAL HISTORY: Unknown past medical history. PAST SURGICAL HISTORY: Unknown. SOCIAL HISTORY: Unknown social history. ALLERGIES: NO KNOWN DRUG ALLERGIES. CURRENT MEDICATIONS: Unable to obtain. PHYSICAL EXAMINATION: VITAL SIGNS: Blood pressure 150/84, respirations 17, heart rate 55, O2 saturation 97% on ventilator. GENERAL: Currently, the patient is ventilated. He is nonresponsive to verbal or painful noxious stimuli, brainstem reflexes. His pupils are fixed and dilated. There is a mild corneal reflex. He has no gag reflex. He is not moving any extremities. GCS of 3. IMAGING DATA: CT brain, impression, 1. Right basal ganglia parenchymal hematoma with extensive intraventricular extension encasing subfalcine and uncal herniation. 2. Small amount of scattered subarachnoid hemorrhage. ASSESSMENT AND PLAN: Mr. Peguero is a 53-year-old male, who was brought to the emergency department due to a large intraparenchymal hemorrhage with midline shift as well as uncal herniation. This is a non-survivable bleed. The patient have minimal brain stem reflexes, corneal reflexes present, no gag, pupils are nonreactive, no reaction to noxious stimuli. The patient is ventilated and not sedated. We will keep the patient comfortable as much as we can and perform a brain study in the morning Job ID: [id number]
[2018-07-26] MEDS: niCARdipine HCl 25 MG in Sodium Chloride 0.9% 250 ML 240 ML IVPB PRN ×3 (01:14→05:17)
[2018-07-26] MEDS: Propofol 1,000 MG/100 ML VIAL IV PRN (03:15)
[2018-07-26] MEDS: Sodium Chloride 0.9% 1,000 ML IV SCH ×3 (05:18→17:04)
[2018-07-26 07:04] LABS: Actual Bicarbonate (HCO3a) 29.1 mEq/L (22-28); Base Excess (BEa) -0.1 mEq/L (-2.0 to +3.0); Calcium, Ionized 1.25 mmol/L (1.12-1.30); Carboxyhemoglobin (COHb) 0.3 gm% (0.0-3.0); Hemoglobin (Hb) 20.1 g/dL (14.0-18.0); O2 Tension (PaO2) 119.8 mmHg (80.0-100.0); Potassium - ABG Lab 4.68 mmol/L (3.70-5.30); pH, Arterial 7.28 (7.35-7.45)
[2018-07-26 07:06] LABS: Puncture Site RRA
--- NOTE | 2018-07-26 09:20 | CON ---
DATE OF CONSULTATION: HISTORY OF PRESENT ILLNESS: Beka Peguero is 53-year-old gentleman, who is intubated on the vent, presented yesterday after he was unresponsive. 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 He was brought into the ER, where initial CT of the head revealed large intracerebral hemorrhage. CT angiogram confirmed rather extensive large right parenchymal hematoma with diffuse cerebral edema. His sister states that the patient is relatively healthy. He was recently here several months ago for scrotal abscess. PAST MEDICAL HISTORY: Otherwise, his past medical history is pertinent for mainly hypertension. PREVIOUS SURGERIES: Umbilical hernia surgery, history of scrotal abscesses. SOCIAL HISTORY: Alcohol, none. Tobacco, none. Drug abuse, none. Sister says he is relatively healthy, does not see a doctor. PHYSICAL EXAMINATION: GENERAL: On examination, he is intubated and unresponsive, pupils are 4 mm. He was on Diprivan that has been discontinued. VITAL SIGNS: His temperature is 98. His respiratory rate is set at 10, he is breathing four times over the vent at 14. His blood pressure is low at 103/63. He was on a Cardene drip all night. Now, he is on Levophed. Saturations are 100%. CHEST: Decreased breath sounds, no wheezing. CARDIAC: Normal S1 and S2. No gallops. ABDOMEN: Soft. NEUROLOGIC: He is unresponsive, upgoing toes. LABORATORY DATA: White count 15,000, platelet count 193. His PO2 is 119, pCO2 is 64, pH 7.28 on a rate of 12 at 35%. His earlier gases showed a PO2 of 87, pCO2 of 37, pH 7.33. Lytes were normal. Glucose was slightly elevated at 219. IMPRESSION: 1. Status post fall with a large right intracerebral hemorrhage with evidence of herniation. 2. Initially hypertensive, now hypotensive. 3. Respiratory failure. With his pCO2 being 64 on a rate of 12, he is not a candidate for any apnea testing. There is concern about brain . We need to do a stat perfusion lung scan. Discuss with Neurosurgery. Otherwise, continue supportive care. We will follow. This is a 45-minute critical time. Job ID: [id number]
[2018-07-26 09:46] LABS: #Lymphocytes 1.5 thou/uL (1.20-3.40); #Monocytes 1.4 thou/uL (0.11-0.59); #Neutrophils 8.6 thou/uL (1.40-6.50); %Basophils 0.2 % (0.0-1.0); %Eosinophils 0.1 % (0.0-10.0); %Lymphocytes 13.3 % (21.0-51.0); %Monocytes 12.2 % (0.0-10.0); %Neutrophils 74.1 % (42.0-75.0); Hemoglobin 17.8 g/dL (14.0-18.0); Mean Corpuscular HGB CONC 31.3 g/dL (32.0-36.0); Mean Corpuscular Hemoglobin 33.8 pg (27.0-31.0); Mean Platelet Volume 7.2 fL (7.4-10.4); Platelet Count 226 thou/uL (130-400); RBC Distribution Width 14.3 % (11.5-14.5); Red Blood Cell (RBC) Count 5.28 mill/uL (4.70-6.10); White Blood Cell (WBC) Count 11.6 thou/uL (4.8-10.8)
--- NOTE | 2018-07-26 09:48 | PRG ---
DATE OF SERVICE: 07/26/2018 I saw Mr. Peguero in his ICU bed this morning. Nurses do not report any significant changes except for a spike in his urine output early this morning to 700 mL in the last hour. He has been off sedation for 40 minutes before his examination. On exam, he does not move his extremities to sternal rub. His pupils are large, midposition, and nonreactive. He has lost his corneal reflex. He has no doll's eyes (vestibulo-ocular) reflex. He has no gag reflex. With the rate of the ventilator turned down, he starts to initiate a breath. The patient's sister and two nieces visited with me this morning. We spent 30 minutes in front of the monitors, looking at imaging from his admission and overnight. I showed them the outline of the right temporal lobe, the large intraparenchymal hemorrhage, the herniation of the temporal horn of the temporal lobe as well as the uncus into the brainstem. I showed them Duret hemorrhages in the brainstem, I showed them the shift of the brainstem, I showed them the shift in the supratentorial space as well. I outlined internal capsule, and I discussed the futility of operative intervention once there has been herniation and Duret hemorrhages at the level of the midbrain. During the day today, the Critical Care Team will continue to test Mr. Peguero as he continues to initiate breathing. Once he does not, a formal apnea test can be done. We will start the apnea test with a pCO2 of 40 and hyperoxygenation. We will disconnect the ventilator and leave a cannula of 100% O2 down the endotracheal tube to the juana. We will watch for any hint of breathing for 5 to 10 minutes, and once the pCO2 was over 60 (or 20 mmHg more than the start), but there is still no breath initiated, then we will declare brain . All of these presupposes his cardiovascular system can support the test. Job ID: [id number] MTDD
[2018-07-26 10:11] LABS: ALT (SGPT) 20 U/L (8-55); AST (SGOT) 82 U/L (5-34); Albumin 3.6 g/dL (3.5-5.0); Alkaline Phosphatase 83 U/L (40-150); Anion Gap 12 mmol/L (10-20); BUN (Urea Nitrogen) 7 mg/dL (8.4-25.7); Bilirubin, Direct 0.3 mg/dL (0.1-0.3); Calc. Creatinine Clearance 80 mL/min (70-130); Calcium 8.7 mg/dL (7.8-10.44); Carbon Dioxide 25 mmol/L (22-29); Chloride 128 mmol/L (98-107); Estimated GFR-MDRD Greater than 90; Globulin 3.7 g/dL (2.4-3.5); Glucose 165 mg/dL (70-105); Potassium 4.7 mmol/L (3.5-5.1); Protein, Total 7.3 g/dL (6.0-8.3); Sodium 160 mmol/L (136-145)
[2018-07-26] MEDS: Famotidine/PF 20 mg/2ml Vial SLOW IVP SCH (10:27)
[2018-07-26 12:28] LABS: Actual Bicarbonate (HCO3a) 27.6 mEq/L (22-28); Base Excess (BEa) -1.9 mEq/L (-2.0 to +3.0); Calcium, Ionized 1.26 mmol/L (1.12-1.30); Carboxyhemoglobin (COHb) 0.6 gm% (0.0-3.0); Hemoglobin (Hb) 18.2 g/dL (14.0-18.0); O2 Tension (PaO2) 118.8 mmHg (80.0-100.0); Potassium - ABG Lab 4.42 mmol/L (3.70-5.30); pH, Arterial 7.24 (7.35-7.45)
[2018-07-26 12:29] LABS: ALV-art Gradient 13.225 (0-20); CO2 Tension 65.5 mmHg (35.0-45.0); Puncture Site RRA
[2018-07-26 12:59] VITALS: BMI 21.2
[2018-07-26 13:21] LABS: Actual Bicarbonate (HCO3a) 25.3 mEq/L (22-28); Base Excess (BEa) -0.2 mEq/L (-2.0 to +3.0); CO2 Tension 43.7 mmHg (35.0-45.0); Calcium, Ionized 1.23 mmol/L (1.12-1.30); Carboxyhemoglobin (COHb) 0.6 gm% (0.0-3.0); Hemoglobin (Hb) 18.3 g/dL (14.0-18.0); O2 Tension (PaO2) 143.3 mmHg (80.0-100.0); Potassium - ABG Lab 4.08 mmol/L (3.70-5.30); pH, Arterial 7.38 (7.35-7.45)
[2018-07-26 13:30] LABS: ALV-art Gradient 15.975 (0-20)
[2018-07-26 13:41] LABS: Actual Bicarbonate (HCO3a) 28.5 mEq/L (22-28); CO2 Tension 66.1 mmHg (35.0-45.0); Calcium, Ionized 1.29 mmol/L (1.12-1.30); Carboxyhemoglobin (COHb) 0.3 gm% (0.0-3.0); Hemoglobin (Hb) 18.4 g/dL (14.0-18.0); O2 Tension (PaO2) 542.1 mmHg (80.0-100.0); Potassium - ABG Lab 3.98 mmol/L (3.70-5.30); Puncture Site LBA; pH, Arterial 7.25 (7.35-7.45)
--- NOTE | 2018-07-26 14:07 | PRG ---
DATE OF SERVICE: 07/26/2018 This is an apnea test. Please note, prior to apnea, he met all the requirements. His pupils were nonreactive, dilated. No cough reflex. His pulse was 75. His blood pressure was 136/95, and his oxygen saturation was 100% on 100% FiO2. His vent was set at a rate of 20. His blood gases shows a PO2 of 143, pCO2 of 43, pH 7.38. Apnea test was performed, he was disconnected from the respirator, 10 L of O2 via suction catheter was placed in the endotracheal tube. We observed him for a total of 8 minutes to note he had no spontaneous respirations. His pulse was 70, blood pressure was 121/87. His oxygen saturations remained 100%. He had no spontaneous respiration. Blood gas done immediately at 8 minutes shows a pH of 7.25, pCO2 was 66, PO2 was 542. The patient's apnea test was considered positive. He has no spontaneous respiration. His pCO2 elevated from 43 to 66. Family was notified. Neurosurgery will be notified. The patient is now collected back to the volume cycle respirator. Job ID: [id number]
--- NOTE | 2018-07-26 15:55 | NM ---
CEREBRAL BLOOD FLOW EXAM 07/26/18 COMPARISON: None. HISTORY: Subarachnoid hemorrhage with possible brain . TECHNIQUE: A nuclear medicine brain examination was performed using 25 millicuries of technetium 99m HM-PA O. FINDINGS: Lack of intracranial flow is seen on the blood flow and delayed phase images. IMPRESSION: Lack of intracranial flow is evidence for brain . POS: [facility]
--- NOTE | 2018-07-26 16:32 | PRG ---
DATE OF SERVICE: SUBJECTIVE: I came back to examine Mr. Peguero after Dr. Casanova had performed his apnea test. A nuclear medicine study had been done as well. Even on re-examination, I do not find brainstem reflexes. Pupils nonreactive. Corneals nonreactive. Oculocephalic (vestibulo-ocular) nonreactive. Gag nonreactive. Apnea test (per Dr. Casanova) 8 minutes with pCO2 elevation from 43 to 66. No effort to breathe. Nuclear medicine examination: No metabolic activity intracranially. DOCUMENT TIME OF : At 1544 on July 26, 2018. Job ID: [id number]
[2018-07-26 17:19] VITALS: TEMP 97.6
[2018-07-26 18:55] VITALS: BP 118/81
== END 2018-07-26 21:00 | disposition expired | DRG 64 ==
LOC: ERS 15:33 → CCU 17:45
PROVIDERS: ADMIT Neurological Surgery; ATTEND Neurological Surgery
PROC: 5A1945Z Respiratory Ventilation, 24-96 Consecutive Hours (ICD-10-PCS; principal; 2018-07-25)
PROC: 0BH17EZ Insertion of Endotracheal Airway into Trachea, Via Natural or Artificial Opening (ICD-10-PCS; 2018-07-25)
DX: I61.8 Other nontraumatic intracerebral hemorrhage (principal); G93.5 Compression of brain; J96.00 Acute respiratory failure, unspecified whether with hypoxia or hypercapnia; R40.2433 Glasgow coma scale score 3-8, at hospital admission; R40.2421 Glasgow coma scale score 9-12, in the field [EMT or ambulance]; I60.9 Nontraumatic subarachnoid hemorrhage, unspecified; G44.53 Primary thunderclap headache; I10 Essential (primary) hypertension; S01.01XA Laceration without foreign body of scalp, initial encounter; W19.XXXA Unspecified fall, initial encounter; Y92.69 Other specified industrial and construction area as the place of occurrence of the external cause
CPT/HCPCS: 31500; 36415; 51702; 70450; 70496; 70498; 78610; 80053; 80076; 81003; 81015; 82550; 82553; 82805; 84484; 85025; 85610; 85730; 93005; 94002; 94003; 94760; 96365; 96366; 96375; A9521; J1953; J2060; J2250; J2597; J2704; J3010; J3490; J7050; Q9966; S0028